=== PATIENT | male | born 1945 | race Caucasian/White ===

== ENCOUNTER 2022-01-28 20:15 | Emergency (ER) | payer MEDICARE ==
[~2022-01-28] VITALS: Ht 175.3 cm; Wt 79.0 kg
[2022-01-28 21:00] LABS: BASOPHILS % (AUTO) 1.2 % (0.0-2.0); EOSINOPHILS % (AUTO) 6.1 % (1.0-6.0); HEMATOCRIT 40.9 % (41-53); HEMOGLOBIN 14.4 g/dL (13.5-17.5); LYMPHOCYTES # (AUTO) 1.9 K/uL (1.0-4.8); MEAN CORPUSCULAR HGB CONC 35.2 G/dL (31.0-37.0); MEAN CORPUSCULAR VOLUME 85 fL (80-100); MONOCYTES # (AUTO) 0.5 K/uL (0.1-1.0); MONOCYTES % (AUTO) 5.2 % (2.0-9.0); NEUTROPHILS # (AUTO) 6.5 K/uL (1.8-7.7); NEUTROPHILS % (AUTO) 67.5 % (40.0-70.0); PLATELET COUNT (AUTO) 201 K/uL (150-450); RED CELL DISTRIBUTION WIDTH 13.4 % (11.5-14.5)
[2022-01-28 21:14] LABS: INR 1.1 (0.9-1.1); PROTHROMBIN TIME 11.4 SEC (9.4-11.6)
[2022-01-28 21:24] LABS: ALBUMIN 2.8 g/dL (3.4-5.0); BILIRUBIN,TOTAL 0.3 mg/dL (0.1-1.0); CALCIUM, TOTAL 8.5 mg/dL (8.8-10.5); CREATININE 1.76 mg/dL (0.60-1.30); POTASSIUM 3.1 mmol/L (3.5-5.1); TOTAL PROTEIN, SERUM 5.8 g/dL (6.4-8.2)
[2022-01-28] MEDS ORDERED: IOHEXOL 300 MG/ML 100 ML VIAL IVP ONE (22:15)
[2022-01-28] MEDS ORDERED: ASPIRIN 81 MG CHEWABLE TABLET PO ONE (23:15)
[2022-01-28] MEDS ORDERED: CLOPIDOGREL BISULFATE 75 MG TABLET PO ONE (23:15)
[2022-01-28 23:53] LABS: COVID AG,FIA SOURCE NASAL SWAB
[2022-01-29 01:22] VITALS: BP 142/70
== END 2022-01-29 02:23 | disposition short-term general hospital (02) ==
LOC: EMS 20:15
DX: G45.9 Transient cerebral ischemic attack, unspecified (principal); E11.9 Type 2 diabetes mellitus without complications; J44.9 Chronic obstructive pulmonary disease, unspecified; I10 Essential (primary) hypertension; Z86.73 Personal history of transient ischemic attack (TIA), and cerebral infarction without residual deficits; Z20.822 Contact with and (suspected) exposure to COVID-19
CPT/HCPCS: 99285; 70496; 71045; 87426; 80053; 84484; 85025; 85610; 85730; 86850; 86900; 86901; 36415; 70498; 82948; 93005; 70450; Q9967